=== PATIENT | female | born 1980 | race Caucasian/White ===

== ENCOUNTER 2019-12-31 17:18 | Emergency (ER) | payer MEDICAID, SELFPAY ==
--- NOTE | 2019-12-31 17:46 | ED.GENADULT ---
HPI - General Adult General Chief complaint: Dental/Oral Stated complaint: Tooth pain Time Seen by Provider: 12/31/19 17:58 Source: patient and RN notes reviewed Mode of arrival: ambulatory Limitations: no limitations History of Present Illness HPI narrative: 8 days ago this patient had her left lower first molar pulled by a dentist. This tooth #17. And then after that she developed a dry socket and was given ibuprofen 800 mg 1 every 6 hours and Tylenol with codeine for the pain. They also gave her medication to put directly into the dry socket area. She was then placed on a azithromycin on 12/29/2019 per a telephone call when she indicated to them that she thought the tooth was infected and they agreed. She has not had any fever. The jaws not been swollen. She not had any TMJ pain. She has had no sore throat, no ear pain, no nasal drainage, and no cough. She has had no rashes. She has had no nausea, no vomiting, no diarrhea. She has had no hematuria, no dysuria, and no pyuria. She has not felt ill in any other way. Related Data Home Medications Medication Instructions Recorded Confirmed azithromycin [Zithromax Z-Sandip] 12/31/19 ibuprofen 800 mg PO Q6H 12/31/19 12/31/19 Allergies Allergy/AdvReac Type Severity Reaction Status Date / Time naproxen Allergy Unknown hives Verified 12/31/19 17:57 tramadol Allergy Swelling Verified 12/31/19 17:58 Review of Systems Review of Systems: Narrative: CONSTITUTIONAL: Denies fever, chills, or sweats. Noncontributory except as pertains to the past medical history and history of present illness. EYES: Denies visual changes, redness, or discharge. ENT: Denies rhinorrhea, congestion, sore throat, or otalgia. CARDIOVASCULAR: Denies chest pain, palpitations, or edema. RESPIRATORY: Denies cough or dyspnea. GASTROINTESTINAL: Denies abdominal pain, nausea, vomiting, or diarrhea. GENITOURINARY: Denies dysuria or hematuria. SKIN: Denies rash or itching. MUSCULOSKELETAL: Denies back pain, joint pain, or myalgia. NEUROLOGIC: Denies headache, numbness, or weakness. PSYCHIATRIC: Denies anxiety or depression. PMFSH Comments At time of signature, I have reviewed and agree with nursing past medical, surgical, social, and family history.Please see nursing chart for further information. There is no relevant family history pertinent to the presenting complaint. Exam Narrative: Exam Narrative: GENERAL: Well-appearing, well-nourished, and in no acute distress. HEAD: Normocephalic, atraumatic. EYES: PERRLA and EOMI. EARS: TM's clear bilaterally and the canals are clear. NOSE: Nares clear, no rhinorrhea or epistaxis. THROAT:Mucous membranes moist.Oropharynx normal without erythema or exudates. There are no TMJ clicks no clicking, locking, or popping. She has full excursion of the TMJs without discomfort in the TMJs. There are no lesions in the floor the mouth. The uvula, pharynx, and tongue appear normal. Tooth #17 which is the left lower first molar is is absent. The gum tissue around that tooth extraction is erythematous, mildly swollen, but not draining any material. It is tender to touch. NECK: Supple. No adenopathy of the neck, supraclavicular, axillary, or inguinal areas. RESPIRATORY: No respiratory distress. Airway patent. Respirations non-labored. Clear to auscultation. There are no wheezes, no rales, no retractions, no use accessory muscles respirations. Patient's not cyanotic and not dyspneic. Pulse ox on room air is 100% current temperature is 36.7 ?C. HEART: Regular rate and rhythm. No murmur heard. Normal peripheral pulses. ABDOMEN: Soft, nontender, nondistended, normal active bowel sounds.No masses. No rebound or guarding, No organomegaly. No CVA pain. No pain McBurney's point. Patient is a negative Sarah sign and negative Rovsing sign. There are no pulsatile masses or audible bruits. EXTREMITIES: No clubbing/cyanosis/ edema. Normal strength & range of motion. SKIN: Warm, dry.Normal c
[2019-12-31 17:50] VITALS: BP 116/60; PULSE 69; RESP 18; TEMP 36.7; O2SAT 100
== END 2019-12-31 18:21 | disposition home or self-care (01) ==
PROVIDERS: Emergency Provider Family Medicine; PCP Family Medicine
DX: K08.89 Other specified disorders of teeth and supporting structures (principal)
CPT/HCPCS: 99213; G0463

== ENCOUNTER 2020-06-10 15:08 | Emergency (ER) | payer BC, OTHER, SELFPAY ==
--- NOTE | 2020-06-10 15:12 | ED.GENADULT ---
HPI - General Adult General Chief complaint: Dental/Oral Stated complaint: tooth pain/poss dry socket Time Seen by Provider: 06/10/20 15:20 Source: patient Mode of arrival: ambulatory Limitations: no limitations History of Present Illness HPI narrative: 40-year-old female patient presents to the [facility] with complaints of lower right dental pain. Patient states she had a tooth pulled about 5 days ago. Patient states that shortly after she noticed that the clot had come out she has had dry socket before. Patient states that she went back on to have a root canal done and she states that they tried to pack it and gave her some Tylenol threes with codeine however she had an allergic reaction to the Tylenol threes with codeine. Patient states that the packing shortly came out afterwards and is now having increasing pain and she feels like there is foul taste in her mouth with odor. Denies any fevers. Denies any chest pain or shortness of breath. Related Data Home Medications Medication Instructions Recorded Confirmed escitalopram oxalate 06/10/20 hydroxyzine HCl 06/10/20 Allergies Allergy/AdvReac Type Severity Reaction Status Date / Time naproxen Allergy Unknown hives Verified 06/10/20 15:12 acetaminophen Allergy Rash Verified 06/10/20 15:22 [From Tylenol-Codeine] codeine Allergy Rash Verified 06/10/20 15:22 [From Tylenol-Codeine] tramadol Allergy Swelling Verified 06/10/20 15:12 Review of Systems Review of Systems: Narrative: CONSTITUTIONAL: Denies fever, chills, or sweats. EYES: Denies visual changes, redness, or discharge. ENT: Denies rhinorrhea, congestion, sore throat, or otalgia. Positive right lower dental pain CARDIOVASCULAR: Denies chest pain, palpitations, or edema. RESPIRATORY: Denies cough or dyspnea. GASTROINTESTINAL: Denies abdominal pain, nausea, vomiting, or diarrhea. GENITOURINARY: Denies dysuria or hematuria. SKIN: Denies rash or itching. MUSCULOSKELETAL: Denies back pain, joint pain, or myalgia. NEUROLOGIC: Denies headache, numbness, or weakness. PSYCHIATRIC: Denies anxiety or depression. [facility] Social History Social History Gender identity (if verbalized by the patient): Female Comments At the time of my signature I agree with nursing past medical history, surgical, social, and family history. There is no relevant family history pertinent to the presenting complaint. Exam Narrative: Exam Narrative: GENERAL: Well-appearing, well-nourished, and in no acute distress. HEAD: Normocephalic, atraumatic. EYES: PERRLA and EOMI. ENT: Nares clear, no rhinorrhea or epistaxis. Mucous membranes moist. Patient has slight redness around the missing 2 to the right lower molar area. There does not seem to be any obvious discharge noted. NECK: Supple. No lymphadenopathy CHEST: Clear to auscultation. No respiratory distress. HEART: Regular rate and rhythm. No murmur heard. Normal peripheral pulses. ABDOMEN: Soft, nontender, nondistended, normal active bowel sounds. EXTREMITIES: Normal range of motion. No edema. SKIN: Warm, dry, no rash. NEURO: No focal deficits. Alert and oriented x3. Course Vital Signs Vital signs: Vital Signs Temperature 37.2 C 06/10/20 15:15 Pulse Rate 65 06/10/20 15:15 Respiratory Rate 06/10/20 15:15 Blood Pressure 121/50 L 06/10/20 15:15 Pulse Oximetry 99 06/10/20 15:15 Temperature 37.2 C 06/10/20 15:15 Pulse Rate 65 06/10/20 15:15 Respiratory Rate 06/10/20 15:15 Blood Pressure 121/50 L 06/10/20 15:15 Pulse Oximetry 99 06/10/20 15:15 Vital signs reviewed. Medical Decision Making Differential Diagnosis Differential Diagnosis: Differential diagnosis: Dental caries, periodontal disease, avulsed tooth, tooth infections, mandibular infection, Hayden's angiana, upper tooth infection, dry socket, gingivitis, acute necrotizing ulcerative gingivitis, sialolithiasis.
[2020-06-10 15:15] VITALS: BP 121/50; PULSE 65; RESP 20; TEMP 37.2; O2SAT 99
== END 2020-06-10 15:45 | disposition home or self-care (01) ==
PROVIDERS: Emergency Provider Nurse Practitioner Family; PCP Family Medicine
DX: M27.3 Alveolitis of jaws (principal); K08.89 Other specified disorders of teeth and supporting structures; F41.9 Anxiety disorder, unspecified
CPT/HCPCS: 99213; G0463

== ENCOUNTER 2021-03-18 14:49 | Emergency (ER) | payer BC, SELFPAY ==
[2021-03-18 14:54] VITALS: BP 110/54; PULSE 66; RESP 16; TEMP 36.6; O2SAT 100
--- NOTE | 2021-03-18 15:05 | ED.BACK ---
HPI - Back Pain/Injury General Chief Complaint: Back Pain/Injury Stated Complaint: pain in upper left side Time Seen by Provider: 03/18/21 15:05 Source: patient and RN notes reviewed Mode of arrival: ambulatory Limitations: no limitations History of Present Illness HPI Narrative: 41-year-old female presents to the [facility] with complaints of left mid back pain since this morning when she was lifting stuff into her jeep. Patient states the pain is worse with movement. No loss or retention of bowel or bladder. Has taken ibuprofen Related Data Home Medications Medication Instructions Recorded Confirmed clonazepam 0.5 mg PO DAILY PRN 03/18/21 03/18/21 Allergies Allergy/AdvReac Type Severity Reaction Status Date / Time codeine Allergy Mild Rash Verified 03/18/21 15:10 [From Tylenol-Codeine] naproxen Allergy Mild hives Verified 03/18/21 15:10 tramadol Allergy Mild Swelling Verified 03/18/21 15:10 Review of Systems Review of Systems: Narrative: CONSTITUTIONAL: Denies fever, chills, or sweats. CARDIOVASCULAR: Denies chest pain, palpitations, or edema. RESPIRATORY: Denies cough or dyspnea. GASTROINTESTINAL: Denies abdominal pain, nausea, vomiting, or diarrhea. GENITOURINARY: Denies dysuria or hematuria. SKIN: Denies rash or itching. MUSCULOSKELETAL: Left mid back pain. Denies joint pain, or myalgia. NEUROLOGIC: Denies headache, numbness, or weakness. PSYCHIATRIC: Denies anxiety or depression. All other systems reviewed are negative, except as documented in HPI. [facility] Past Medical History Medical History (Updated 03/18/21 @ 19:48 by Meeta Roa) Anxiety Kidney stone Social History Social History Gender identity (if verbalized by the patient): Female Comments At the time of my signature, I reviewed and agree with the nursing past medical, surgical, social, and family history. There is no relevant family history pertinent to the patient complaint. Exam Narrative: Exam Narrative: GENERAL: This is a well-nourished, well-developed patient, in no apparent distress. HEAD: normocephalic, atraumatic. EYES: PERRL. Sclera clear/white. Vision is grossly intact. EARS: External ears normal, NECK: Neck supple, non-tender without lymphadenopathy, masses or thyromegaly. CARDIOVASCULAR: Regular rate and rhythm without murmurs, gallops, or rubs. RESPIRATORY: Clear to auscultation. Breath sounds equal bilaterally. No wheezes, rales, or rhonchi. GASTROINTESTINAL: Abdomen soft, non-tender, nondistended. SKIN: warm, Dry, intact with no suspicious lesions or rash, good texture and turgor. NEURO: awake, alert, and oriented to person, place and time. There were no obvious focal neurologic abnormalities. EXTREMITIES: No joint tenderness, effusion, or edema noted. BACK: Nontender without deformity. Course Vital Signs Vital signs: Vital Signs Temperature 97.8 F 03/18/21 14:54 Pulse Rate 66 03/18/21 14:54 Respiratory Rate 16 03/18/21 14:54 Blood Pressure 110/54 L 03/18/21 14:54 Pulse Oximetry 100 03/18/21 14:54 Temperature 97.8 F 03/18/21 14:54 Pulse Rate 66 03/18/21 14:54 Respiratory Rate 16 03/18/21 14:54 Blood Pressure 110/54 L 03/18/21 14:54 Pulse Oximetry 100 03/18/21 14:54 Reviewed MDM - Back Pain/Injury MDM Narrative Medical decision making narrative: Discharge instructions reviewed with patient, as well as provided in writing per nursing staff. The instructions also include specific and strict return/GO TO THE ER as well as f/u information. All questions have been answered, and the patient deny any further questions with discharge and discharge plan. Differential Diagnosis Differential diagnosis: Likely strain of lumbar region and thoracic back pain Lab Data Labs: Urine Glucose Negative Reference Range: Negative Urine Bilirubin Negative
== END 2021-03-18 15:45 | disposition home or self-care (01) ==
PROVIDERS: Emergency Provider Nurse Practitioner; PCP Family Medicine
DX: M54.6 Pain in thoracic spine (principal); F41.9 Anxiety disorder, unspecified
CPT/HCPCS: 81003; 99213; G0463

== ENCOUNTER 2024-04-14 08:16 | Emergency (ER) | payer BC, MEDICAID, SELFPAY ==
--- NOTE | ~2024-04-14 | XR_ITS ---
EXAMINATION: XR finger 3rd RT min 2V DATE: 04/14/2024 08:41 INDICATION: Trauma to the right third proximal interphalangeal joint TECHNIQUE: Dorsal palmar, lateral and 2 oblique views of the right third digit were obtained COMPARISON: None FINDINGS: Alignment is normal. No fracture. Joint spaces are normal. Soft tissue swelling about the third proxi mal interphalangeal joint. IMPRESSION: 1. No osseous abnormality. Reviewed, dictated and finalized at location A. IMPRESSION: 1. No osseous abnormality.
[2024-04-14 08:28] VITALS: BP 116/58; PULSE 80; RESP 18; TEMP 36.6; O2SAT 100
--- NOTE | 2024-04-14 08:37 | ED.UPPEXIN ---
HPI - Extremity Injury (Upper) General Chief Complaint: Extremity Injury, Upper Stated Complaint: Finger Injury Source: patient Mode of arrival: ambulatory Limitations: no limitations History of Present Illness HPI narrative: 44-year-old female presented for complaint pain to the right middle finger after injury last night. States she struck the finger on her metal Aleks cup and heard a pop. Endorses decreased ROM today (at the PIP). Did not take anything for pain. Related Data Home Medications Medication Instructions Recorded Confirmed hydrocodone 5 mg-acetaminophen 325 1 tablet PO Q6-8H PRN Pain 04/14/24 04/14/24 mg tablet Allergies Allergy/AdvReac Type Severity Reaction Status Date / Time codeine Allergy Mild Rash Verified 03/18/21 15:10 [From Tylenol-Codeine] naproxen Allergy Mild hives Verified 03/18/21 15:10 tramadol Allergy Mild Swelling Verified 03/18/21 15:10 Review of Systems Review of Systems: CONSTITUTIONAL: Denies body aches, fever, chills CARDIOVASCULAR: Denies chest pain, palpitations, or edema. RESPIRATORY: Denies cough or dyspnea. SKIN: Denies rash, itching, or wounds. MUSCULOSKELETAL: Reports middle finger pain . NEUROLOGIC: Denies headache, numbness, tingling, or weakness. All systems reviewed & are unremarkable except as noted in HPI and below PMFSH Past Medical History Medical History Anxiety Kidney stone Social History Social History Gender identity (if verbalized by the patient): Female Comments At time of signature, I have reviewed and agree with nursing past medical, surgical, social and family history unless otherwise noted. Please see nursing chart for further information. There is no relevant family history pertinent to the presenting complaint Exam Narrative: GENERAL: Well-appearing CHEST: Speaks in full sentences. No respiratory distress. HEART: Regular rate and rhythm. Normal and equal peripheral pulses. EXTREMITIES: Right middle digit has normal strength and sensation. limited range of motion with flexion/extension at PIP, endorses pain with movement. Mild swelling to PIP, tender. No ecchymosis, No open wounds, or obvious deformity; alignment normal, pulse palpable and equal bilaterally, skin warm, dry, pink. Capillary refill less than 3 seconds. SKIN: Warm, dry NEURO: Alert and oriented x3. PSYCH: Normal mood and affect Course Course Emergency Course: Patient is aware of diagnosis, understands and agrees to treatment plan. Anticipatory guidance given. Patient agrees to follow-up as directed and is aware of reasons to seek care at the emergency department. Portions of this record may have been created with voice recognition software Level of Care: Express Care Visit Vital Signs Vital signs: Vital Signs Temperature 97.8 F 04/14/24 08:28 Pulse Rate 80 04/14/24 08:28 Respiratory Rate 18 04/14/24 08:28 Blood Pressure 116/58 L 04/14/24 08:28 Pulse Oximetry 100 04/14/24 08:28 Oxygen Delivery Room Air 04/14/24 08:28 Temperature 97.8 F 04/14/24 08:28 Pulse Rate 80 04/14/24 08:28 Respiratory Rate 18 04/14/24 08:28 Blood Pressure 116/58 L 04/14/24 08:28 Pulse Oximetry 100 04/14/24 08:28 Oxygen Delivery Room Air 04/14/24 08:28 Reviewed MDM - Extremity Injury (Upper) MDM Narrative Medical decision making narrative: Report of xray reviewed with pt. Metal finger splint applied. Patient's injury and pain appear to be of musculoskeletal nature. No concern for tendon or nerve injury. Patient is treatable on an outpatient basis. Differential Diagnosis Differential diagnosis: Likely finger sprain, dislocation of finger and other (fracture, contusion) Imaging Data Radiologist's impression: Patient: Opal Red : 1980 MR#: [id number] Age: 44 Acct:[id number] Loc: [facility]? ?
== END 2024-04-14 09:54 | disposition home or self-care (01) ==
PROVIDERS: Emergency Provider Nurse Practitioner Family; PCP Family Medicine
DX: S63.612A Unspecified sprain of right middle finger, initial encounter (principal); W22.8XXA Striking against or struck by other objects, initial encounter
CPT/HCPCS: 29130; 73140; 99213; G0463